=== PATIENT | male | born 1975 | race Caucasian/White ===

== ENCOUNTER 2019-03-03 09:25 | Emergency (ER) | payer OTHER ==
[2019-03-03 09:30] VITALS: BMI 25.4
--- NOTE | 2019-03-03 09:56 | PDOC ---
History of Present Illness - General Chief Complaint: Pain Stated Complaint: ABD PAIN / VOMITTING - History of Present Illness Initial Comments: 03/03/19 09:53 43 yo M with no significant pmh who p/w burning epigastria pain and vomiting. Patient reports waking up at 300 AM today with multiple episodes of NBNB emesis (20 + ), and unremitting, non radiating, non pleuritic, burning epigastria pain. No identifiable triggers or alleviators. Denies h/o prior symptoms. Denies PO intake following symptoms or OTC symptom management. No sick contacts , change in diet, or recent travels. Denies h/o endoscopy. Does not f/w GI. Nml bowel habits. Patient denies LARSON, vision change, palpitations, cough, wheezing, orthopena, PND , leg swelling/pain, F,C, CP, SOB, urinary complaints, hematuria, BPR, diarrhea , constipation, lightheadedness, weakness, sensory changes. PMHx: as noted above Srugical: denies abdominal surgery ROS: as noted SHx: Social Etoh. Denies IVDA, tobacco use Allergies: NKDA Past History - Past Medical History Allergies/Adverse Reactions: Allergies Allergy/AdvReac Type Severity Reaction Status Date / Time No Known Allergies Allergy Verified 03/03/19 09:30 Home Medications: Ambulatory Orders NK [No Known Home Medication] 03/03/19 COPD: No - Suicide/Smoking/Psychosocial Hx Smoking History: Never smoked Information on smoking cessation initiated: No Hx Alcohol Use: Yes Drug/Substance Use Hx: No Review of Systems - Review of Systems Comments:: 03/03/19 09:54 GENERAL/CONSTITUTIONAL: No fever or chills. No weakness. HEAD, EYES, EARS, NOSE AND THROAT: No change in vision. No ear pain or discharge. No sore throat. CARDIOVASCULAR: No chest pain or shortness of breath RESPIRATORY: No cough, wheezing, or hemoptysis. GASTROINTESTINAL: + Abdominal pain, nausea, vomiting. No diarrhea or constipation. GENITOURINARY: No dysuria, frequency, or change in urination. MUSCULOSKELETAL: No joint or muscle swelling or pain. No neck or back pain. SKIN: No rash NEUROLOGIC: No headache, vertigo, loss of consciousness, or change in strength/ sensation. ENDOCRINE: No increased thirst. No abnormal weight change HEMATOLOGIC/LYMPHATIC: No anemia, easy bleeding, or history of blood clots. ALLERGIC/IMMUNOLOGIC: No hives or skin allergy. *Physical Exam - Vital Signs Last Vital Signs Temp Pulse Resp BP Pulse Ox 97.6 F 72 17 130/82 100 03/03/19 09:29 03/03/19 09:29 03/03/19 09:29 03/03/19 09:29 03/03/19 09:29 - Physical Exam Comments: 03/03/19 09:54 GENERAL: Awake, alert, and fully oriented, in no acute distress HEAD: No signs of trauma, normocephalic, atraumatic EYES: PERRLA, EOMI, sclera anicteric, conjunctiva clear ENT: + dry mucous membranes. Auricles normal inspection, hearing grossly normal , nares patent, oropharynx clear without exudates. NECK: Normal ROM, supple, no lymphadenopathy, JVD, or masses LUNGS: No distress, speaks full sentences, clear to auscultation bilaterally HEART: Regular rate and rhythm, normal S1 and S2, no murmurs, rubs or gallops, peripheral pulses normal and equal bilaterally. ABDOMEN: + Epigastric ttp. Soft, NDS, normoactive bowel sounds. No guarding, no rebound. No masses. Neg CVA ttp. EXTREMITIES : Normal inspection, Normal range of motion, no edema. No clubbing or cyanosis NEUROLOGICAL: Cranial nerves II through XII grossly intact. Normal speech, normal gait, no focal sensorimotor deficits ED Treatment Course - LABORATORY CBC & Chemistry Diagram: 03/03/19 10:00 03/03/19 10:00 - ADDITIONAL ORDERS Additional order review: 03/03/19 13:49 Angle Azevedo Name: [facility] DEPARTMENT OF RADIOLOGY Phys: Buzz Christine MD : 1975 Age: 43 Sex: M [facility] Acct: [id number] Loc: [address] Exam Date: 03/03/19 Status: MARTHA Loya [id number] Unit Number: [id number] EXAM#: TYPE/EXAM: RESULT: [id number] US/ABDOMEN US -LIMITED Right upper quadrant abdomen ultrasound Clinical information evaluate for gallstones No definite biliary calculus is seen. A 4 x 2 mm echogenic focus is seen along the posterior gallbladder wall most consistent with a polyp, less likely an adherent calculus. The gallbladder otherwise appears unremarkable. No pericholecystic fluid is seen. The common bile duct diameter appears unremarkable measuring 0.4 cm. The liver, right kidney and partially visualized pancreas demonstrate no sonographic abnormality. No free intraperitoneal fluid is noted. Impression: No definite evidence of cholelithiasis. A 4 x 2 mm echogenic nonmobile echogenic focus is seen along the posterior gallbladder wall most consistent with a polyp, less likely an adherent calculus. Correlation with 6 month follow up sonography is suggested to document stability. There is no definite biliary tract dilatation. Reported By: Arsh Barrera MD 03/03/191345 Buzz Christine Technologist: Kady Carter Transcribed Date/Time: 03/03/191345 Civil Design Technician: Arsh Barrera Printed Date/Time: By : Medical Decision Making - Medical Decision Making 03/03/19 10:15 43 yo M with no significant pmh who p/w burning epigastria pain and vomiting. Vitals wnl, AF, A&Ox3. Physical exam with epigastria ttp, and dry mucous membranes. Will consider gastritis, pancreatitis, enteritis, colitis, biliary dz., PUD, gastroparesis. Will provide adequate IVF hydration, anti-emetic, and analgesic control, PO challenge, reassess. Ed Course: Zofran, NS, Famotidine EKG: NSR with absent HAI, STD. Nml interval duration and axis. Nml R wave progression. Absent Q waves. 03/03/19 10:52 Laboratory Tests 03/03/19 03/03/19 03/03/19 10:00 10:00 10:00 WBC 7.1 Hgb 14.2 Hct 42.5 Plt Count 327 Sodium 141 Potassium 4.1 Chloride 105 Anion Gap 6 L BUN 15.0 Creatinine 0.8 Random Glucose 109 H AST 44 H ALT 40 Alkaline Phosphatase 72 Lipase 129 03/03/19 12:13 UA: 3+ ketones, otherwise unremarkable Patient with cont'd vomiting, zofran 4 mg IVP, tylenol RUQ U/S CXR: No acute pathology 03/03/19 13:50 RUQ U/S: Impression: No definite evidence of cholelithiasis. A 4 x 2 mm echogenic nonmobile echogenic focus is seen along the posterior gallbladder wall most consistent with a polyp, less likely an adherent calculus. Correlation with 6 month follow up sonography is suggested to document stability. There is no definite biliary tract dilatation. Reported By: Arsh Barrera MD 03/03/19 1346 Discussed U/S findings with patient who expresses understanding and agrees to f/ u PMD. 03/03/19 13:52 Pt. vomiting resolved. Tolerating PO intake Stable for d/c with return precautions *DC/Admit/Observation/Transfer Diagnosis at time of Disposition: Epigastric pain, Abdominal pain with vomiting - Referrals Referrals: Boby Bain MD [Staff Physician] - - Patient Instructions Printed Discharge Instructions: DI for Abdominal Pain-Adult Additional Instructions: Please return to the emergency department with any new or worsening symptoms or concerns. Please follow up with your primary care physician within 72 hours. Please discuss right upper quadrant ultrasound findings (4 x 2 mm echogenic nonmobile echogenic focus is along the posterior gallbladder wall most consistent with a polyp, less likely an adherent calculus) with primary care physician. Correlation with 6 month follow up sonography is recommended for finding on ultrasound. - Post Discharge Activity
[2019-03-03] MEDS ORDERED: SODIUM CHLORIDE 1,000 ML IV STA ×2 (09:58→10:09)
[2019-03-03] MEDS ORDERED: FAMOTIDINE 20 MG/50 ML IVPB 20 MG/50 ML MG IVPB ONE ×2 (10:09→10:13)
[2019-03-03] MEDS ORDERED: ONDANSETRON 4 MG/2 ML VIAL IVPUSH ONE (10:09)
--- NOTE | 2019-03-03 10:11 | PDOC ---
Attending Attestation - Resident Resident Name: Suresh Solares - ED Attending Attestation I have performed the following: I have examined & evaluated the patient, The case was reviewed & discussed with the resident, I agree w/resident's findings & plan, Exceptions are as noted - HPI HPI: 03/03/19 11:10 43y M hx no significant pmhx presen with complain of epigastric pain and nbnb vomiting since last night, pain is sharp, constant, no associated with any hemetemsis, fever/chills, diarrhea,dysuria, cp, sob. no prior similar pain in the past. n oworsening of pain on exertion. social: social etoh, denies ivdu exam: general: uncomfortable appearing abd: soft, mild ttp to epgiastrium, neg murphies, no ttp at mcburnys, no rbund/ guarding, no cva tenderness card: rrr, no mrg pulm cta bl ap - consier pancreatitis, gb disease, gastritis labs, pepcid/zofran/fluids ek gto screen for acs will erasses - Physicial Exam PE: 03/03/19 12:53 see above - Medical Decision Making 03/03/19 14:12 pt feelin gimproved labs reviewed US noted for 4x2mm echogenic nonmobile focu likely a polyp - laura have up for reassessment pt tolerating oral intake abd soft nontender will dc with outpatient mangement Heart Score/ECG Review - ECG Impressions Comment:: 03/03/19 11:12 Twelve-lead EKG was performed and reviewed by me. There is normal sinus rhythm with a normal rate. rate of 65 The axis is normal. The intervals are normal. There is normal R wave progression There are no ST or T wave abnormalities. Impression: Normal twelve-lead EKG
[2019-03-03] MEDS ORDERED: ONDANSETRON 4 MG/2 ML VIAL ONE ×3 (10:13→14:16)
[2019-03-03 10:34] LABS: BASO % 0.7 % (0-2.0); EOS % 0.1 % (0-4.5); HEMATOCRIT 42.5 % (35.4-49); HEMOGLOBIN 14.2 GM/dL (11.7-16.9); LYMPH % 12.2 % (8-40); MCHC 33.5 g/dl (32.0-35.9); MEAN CELL VOLUME 101.4 fl (80-96); MEAN PLT VOLUME 8.1 fl (7.5-11.1); MONO % 4.6 % (3.8-10.2); NEUT % 82.4 % (42.8-82.8); PLATELET COUNT 327 K/MM3 (134-434); RBC 4.19 M/mm3 (4.00-5.60); RDW 12.7 % (11.9-15.9); WHITE BLOOD COUNT 7.1 K/mm3 (4.0-10.0)
[2019-03-03 10:50] LABS: ALBUMIN 4.4 g/dl (3.4-5.0); BILIRUBIN,TOTAL 0.4 mg/dL (0.2-1); CALCIUM 9.1 mg/dL (8.5-10.1); CREATININE 0.8 mg/dL (0.55-1.3); POTASSIUM 4.1 mmol/L (3.5-5.1); TOT PROT 8.4 g/dl (6.4-8.2)
[2019-03-03 12:10] LABS: URINE APPEARANCE CLEAR; URINE BILIRUBIN NEGATIVE (NEGATIVE); URINE COLOR YELLOW; URINE GLUCOSE (UA) NEGATIVE (NEGATIVE); URINE KETONE 3+ (NEGATIVE); URINE LEUK ESTERASE NEGATIVE (NEGATIVE); URINE NITRITE NEGATIVE (NEGATIVE); URINE PROTEIN NEGATIVE (NEGATIVE)
[2019-03-03] MEDS ORDERED: ONDANSETRON 4 MG/2 ML VIAL IVPB ONE ×2 (12:10→14:12)
[2019-03-03] MEDS ORDERED: ACETAMINOPHEN 1000 MG/100 ML VIAL (NON FORMULARY) IVPB ONE (12:25)
[2019-03-03] MEDS ORDERED: ACETAMINOPHEN INJECTION 100 ML IVPB ONE (12:41)
[2019-03-03 12:42] LABS: COCAINE, UR NEGATIVE ng/ml (CUTOFF=300); METHADONE, UR NEGATIVE ng/ml (CUTOFF=300); OPIATES, URI NEGATIVE ng/ml (CUTOFF=300); PHENCYCLIDINE,URINE NEGATIVE ng/ml (CUTOFF=25); URINE AMPHETAMINES NEGATIVE ng/ml (CUTOFF=500); URINE BARBITURATES NEGATIVE ng/ml (CUTOFF=200); URINE BENZODIAZEPINES NEGATIVE ng/ml (CUTOFF=200)
[2019-03-03 13:04] VITALS: BP 113/65; PULSE 62; TEMP 98.4
--- NOTE | 2019-03-03 16:33 | EKG ---
Test Reason : Blood Pressure : / mmHG Vent. Rate : 065 BPM Atrial Rate : 065 BPM P-R Int : 124 ms QRS Dur : 086 ms QT Int : 420 ms P-R-T Axes : 047 -05 032 degrees QTc Int : 436 ms NORMAL SINUS RHYTHM NORMAL ECG NO PREVIOUS ECGS AVAILABLE Confirmed by MD ARIANE, ANALILIA ([id number]) on 03/03/2019 4:33:01 PM Referred By: Confirmed By:ANALIILA THAKKAR MD
== END 2019-03-03 14:35 | disposition home or self-care (01) ==
LOC: JER 09:25
PROC: 3E0337Z Introduction of Electrolytic and Water Balance Substance into Peripheral Vein, Percutaneous Approach (ICD-10-PCS; principal; 2019-03-03)
PROC: 3E033GC Introduction of Other Therapeutic Substance into Peripheral Vein, Percutaneous Approach (ICD-10-PCS; 2019-03-03)
PROC: 3E033GC Introduction of Other Therapeutic Substance into Peripheral Vein, Percutaneous Approach (ICD-10-PCS; 2019-03-03)
PROC: 3E033NZ Introduction of Analgesics, Hypnotics, Sedatives into Peripheral Vein, Percutaneous Approach (ICD-10-PCS; 2019-03-03)
DX: R10.9 Unspecified abdominal pain (principal); R11.10 Vomiting, unspecified
CPT/HCPCS: 36415; 71045-TC-FY; 76705-TC; 80053; 80307; 81003; 83690; 85025; 93005; 93010; 96361; 96365; 96375; 96376; 99284-25; J0131; J7030